=== PATIENT | male | born 1965 | race Caucasian/White ===

== ENCOUNTER 2022-12-26 15:09 | Emergency (ER) | payer SELFPAY ==
[2022-12-26 15:15] VITALS: BP 157/77; PULSE 72; RESP 18; TEMP 98.4; BMI 61.2
== END 2022-12-26 15:59 | disposition home or self-care (01) ==
LOC: JERFT 15:09
DX: R21 Rash and other nonspecific skin eruption (principal); L29.9 Pruritus, unspecified; L28.0 Lichen simplex chronicus
CPT/HCPCS: 99283-25